=== PATIENT | male | born 1955 | race Caucasian/White ===

== ENCOUNTER 2020-07-17 19:04 | Emergency (ER) | payer OTHER, MEDICARE ==
[2020-07-17] MEDS ORDERED: Lactated Ringers 1,000 ML IV ONE ×2 (19:35→20:40)
--- NOTE | 2020-07-17 19:44 | EDM.PDOC ---
ED HPI GENERAL MEDICAL PROBLEM - General Stated Complaint: TRAUMA CODE Time Seen by Provider: 07/17/20 19:04 Source of Information: Reports: Patient, EMS, EMS Notes Reviewed, Family, RN, RN Notes Reviewed History Limitations: Reports: Altered Mental Status - History of Present Illness INITIAL COMMENTS - FREE TEXT/NARRATIVE: Patient is a 64-year-old male who presents to ER per [facility] ambulance ser vice after being bucked off a horse. EMS reports the patient was unconscious for approximately 5 minutes according to the who witnessed the fall. Patient was bucked and landed from about 8 feet off the ground. Upon arrival to the ER patient is alert but disoriented to time date and event. Patient complains of right flank pain just above the right hip, right shoulder blade pain, and a goose egg on the right side of the head. Patient does have an abrasion to the right lateral forearm. Patient is repeating himself about the right scapular pain and the goose egg on his head. Patient states he is retired and does not keep track of the month or year. Patient is unsure of what he was doing when this occurred, and does ask where he is from time to time. Initially upon arrival patient did know he was in [place]. Patient does not remember an ambulance ride today. Rating pain 1/10. GCS upon arrival = 14 Onset: Today, Sudden Review of Systems - Review of Systems Review Of Systems: Comprehensive ROS is negative, except as noted in HPI. ED EXAM, GENERAL - Physical Exam Exam: See Below Exam Limited By: Altered Mental Status General Appearance: Alert, WD/WN, Mild Distress Eye Exam: Bilateral Eye: EOMI, Normal Inspection, PERRL (3 brisk) Ears: Normal External Exam, Normal Canal, Hearing Grossly Normal, Normal TMs Nose: Normal Inspection, Normal Mucosa, No Blood Throat/Mouth: Normal Inspection, Normal Lips, Normal Teeth, Normal Gums, Normal Oropharynx, Normal Voice, No Airway Compromise Head: Other (hematoma to the right crown of head) Neck: Normal Inspection, Supple, Non-Tender, Full Range of Motion Respiratory/Chest: No Respiratory Distress, Lungs Clear, Normal Breath Sounds, No Accessory Muscle Use, Chest Non-Tender Cardiovascular: Normal Peripheral Pulses, Regular Rate, Rhythm, No Edema, No Gallop, No JVD, No Murmur, No Rub Peripheral Pulses: 2+: Radial (L), Radial (R), Dorsalis Pedis (L), Dorsalis Pedis (R) GI/Abdominal: Non-Tender, No Organomegaly, No Abnormal Bruit, No Mass, Pelvis Stable, Distended, Abnormal Bowel Sounds (distant) (Male) Exam: Deferred Rectal (Males) Exam: Deferred Back Exam: CVA Tenderness (R) (right flank pain just above right hip), Decreased Range of Motion, Paraspinal Tenderness, Vertebral Tenderness (low lumbar/sacrum) Extremities: Normal Inspection, Normal Range of Motion, Non-Tender, No Pedal Edema, Normal Capillary Refill Neurological: Alert, Disoriented (date, time, place, and event), Memory Loss Recent Events. No: Sensory/Motor Deficit Psychiatric: Normal Affect, Normal Mood Skin Exam: Warm, Dry, Other (abrasion to the right forearm) Lymphatic: No Adenopathy #1 Interpretation EKG Date: 07/17/20 Time: 19:26 Rhythm: NSR Rate (Beats/Min): 85 [place]: Normal P-Wave: Present QRS: Normal ST-T: Normal QT: Normal Comparison: NA - No Prior EKG Course - Orders/Labs/Meds Orders: Active Orders 24 hr Category Date Time Status EKG Documentation Completion [RC] STAT Care 07/17/20 18:55 Active Labs: Laboratory Tests 07/17/20 07/17/20 07/17/20 Range/Units 19:26 19:26 19:26 WBC 7.4 (4.0-10.0) x10^3/uL RBC 4.84 (4.5-6.0) x10^6/uL Hgb 14.8 (14.0-18.0) g/dL Hct 42.6 (40.0-52.0) % MCV 88.0 (78.0-93.0) fL MCH 30.6 (26.0-32.0) pg MCHC 34.7 (32.0-36.0) g/dL RDW Coeff of Yanet 13.7 (10.0-15.0) % Plt Count 161 (130-400) x10^3/uL Neut % (Auto) 77.6 (50.0-80.0) % Lymph % (Auto) 12.1 L (25.0-50.0) % Kay % (Auto) 7.7 (2.0-11.0) % Eos % (Auto) 2.3 (0.0-4.0) % Baso % (Auto) 0.3 (0.2-1.2) % PT 10.2 (9.9-12.5) SEC INR 0.9 L (2.0-3.5) Sodium 141 (136-145) mmol/L Potassium 4.2 (3.5-5.1) mmol/L Chloride 105 (98-107) mmol/L Carbon Dioxide 27 (21-32) mmol/L Anion Gap 13.2 (5-15) mmol/L BUN 24 H (7-18) mg/dL Creatinine 1.1 (0.70-1.30) mg/dL Est Cr Clr Drug Dosing TNP Estimated GFR (MDRD) > 60 Glucose 105 H (70-99) mg/dL Calcium 8.4 L (8.5-10.1) mg/dL Corrected Calcium 8.6 (8.5-10.1) mg/dL Magnesium 2.0 (1.8-2.4) mg/dL Total Bilirubin 0.5 (0.2-1.0) mg/dL AST 41 H (15-37) U/L ALT 44 (16-63) U/L Alkaline Phosphatase 71 (46-116) U/L Total Protein 7.1 (6.4-8.2) g/dL Albumin 3.8 (3.4-5.0) g/dL Globulin 3.3 Albumin/Globulin Ratio 1.15 Urine Color (YELLOW) Urine Appearance (CLEAR) Urine pH (5.0-8.0) Ur Specific [place] Urine Protein (NEGATIVE) mg/dL Urine Glucose (UA) (NEGATIVE) mg/dL Urine Ketones (NEGATIVE) mg/dL Urine Occult Blood (NEGATIVE) Urine Nitrite (NEGATIVE) Urine Bilirubin (NEGATIVE) Urine Urobilinogen (0.2) EU/dL Ur Leukocyte Esterase (NEGATIVE) Urine RBC (NOT SEEN) /HPF Urine WBC (NOT SEEN) /HPF Ur Squamous Epith Cells (NOT SEEN) /HPF Urine Bacteria (NOT SEEN) /HPF Urine Mucus (NOT SEEN) /LPF Urine Opiates Screen (NEAGTIVE) Ur Buprenorphine Scrn (NEGATIVE) Ur Oxycodone Screen (NEGATIVE) Ur EDDP (Meth Metab) (NEGATIVE) Urine Methadone Screen (NEGATIVE) Ur Barbiturates Screen (NEGATIVE) Ur Tricyclics Screen (NEGATIVE) Ur Phencyclidine Scrn (NEGATIVE) Ur Amphetamine Screen (NEGATIVE) U Methamphetamines Scrn (NEGATIVE) Urine MDMA Screen (NEGATIVE) U Benzodiazepines Scrn (NEGATIVE) U Cocaine Metab Screen (NEGATIVE) U Marijuana (THC) Screen (NEGATIVE) Ethyl Alcohol < 3 (0-3) mg/dL SARS CoV-2 RNA Rapid DAVID (NEGATIVE) 07/17/20 07/17/20 07/17/20 Range/Units 19:59 20:50 20:50 WBC (4.0-10.0) x10^3/uL RBC (4.5-6.0) x10^6/uL Hgb (14.0-18.0) g/dL Hct (40.0-52.0) % MCV (78.0-93.0) fL MCH (26.0-32.0) pg MCHC (32.0-36.0) g/dL RDW Coeff of Yanet (10.0-15.0) % Plt Count (130-400) x10^3/uL Neut % (Auto) (50.0-80.0) % Lymph % (Auto) (25.0-50.0) % Kay % (Auto) (2.0-11.0) % Eos % (Auto) (0.0-4.0) % Baso % (Auto) (0.2-1.2) % PT (9.9-12.5) SEC INR (2.0-3.5) Sodium (136-145) mmol/L Potassium (3.5-5.1) mmol/L Chloride (98-107) mmol/L Carbon Dioxide (21-32) mmol/L Anion Gap (5-15) mmol/L BUN (7-18) mg/dL Creatinine (0.70-1.30) mg/dL Est Cr Clr Drug Dosing Estimated GFR (MDRD) Glucose (70-99) mg/dL Calcium (8.5-10.1) mg/dL Corrected Calcium (8.5-10.1) mg/dL Magnesium (1.8-2.4) mg/dL Total Bilirubin (0.2-1.0) mg/dL AST (15-37) U/L ALT (16-63) U/L Alkaline Phosphatase (46-116) U/L Total Protein (6.4-8.2) g/dL Albumin (3.4-5.0) g/dL Globulin Albumin/Globulin Ratio Urine Color Yellow (YELLOW) Urine Appearance Slightly cloudy H (CLEAR) Urine pH 6.0 (5.0-8.0) Ur Specific [place] 1.020 Urine Protein Negative (NEGATIVE) mg/dL Urine Glucose (UA) Negative (NEGATIVE) mg/dL Urine Ketones Negative (NEGATIVE) mg/dL Urine Occult Blood Moderate H (NEGATIVE) Urine Nitrite Negative (NEGATIVE) Urine Bilirubin Negative (NEGATIVE) Urine Urobilinogen 0.2 (0.2) EU/dL Ur Leukocyte Esterase Negative (NEGATIVE) Urine RBC 10-20 H (NOT SEEN) /HPF Urine WBC 0-5 (NOT SEEN) /HPF Ur Squamous Epith Cells Not seen (NOT SEEN) /HPF Urine Bacteria Rare (NOT SEEN) /HPF Urine Mucus Occasional H (NOT SEEN) /LPF Urine Opiates Screen Negative (NEAGTIVE) Ur Buprenorphine Scrn Negative (NEGATIVE) Ur Oxycodone Screen Negative (NEGATIVE) Ur EDDP (Meth Metab) Negative (NEGATIVE) Urine Methadone Screen Negative (NEGATIVE) Ur Barbiturates Screen Negative (NEGATIVE) Ur Tricyclics Screen Negative (NEGATIVE) Ur Phencyclidine Scrn Negative (NEGATIVE) Ur Amphetamine Screen Negative (NEGATIVE) U Methamphetamines Scrn Negative (NEGATIVE) Urine MDMA Screen Negative (NEGATIVE) U Benzodiazepines Scrn Negative (NEGATIVE) U Cocaine Metab Screen Negative (NEGATIVE) U Marijuana (THC) Screen Negative (NEGATIVE) Ethyl Alcohol (0-3) mg/dL SARS CoV-2 RNA Rapid DAVID Negative (NEGATIVE) - Radiology Interpretation Free Text/Narrative:: Head CT wo contrast: 1. Small acute left basal ganglia hemorrhage. Hemorrhages in this location are commonly hypertensive, but in the context of trauma this may be posttraumatic hemorrhage. Cervical CT wo contrast: No acute findings Chest/Abdomen/Pelvis CT wo contrast: 1. Acute nondisplaced right posterior 11th rib fracture 2. Infiltrating hemorrhage in the right gluteal subcutaneous tissues 3. Indeterminate retrocrural soft tissue density possibly representing an enlarged lymph node. An elective abdomen CT with contrast may be useful for further characterization Thoracic CT wo contrast: 1. No evidence of acute thoracic spine trauma Lumbar CT wo contrast: 1. Possible tiny incidentally imaged pneumothorax along the medial margin of the right upper lobe not currently amenable to chest tube placement. 2. Negative for acute lumbar spine trauma See rad report - Re-Assessments/Exams Free Text/Narrative Re-Assessment/Exam: 07/17/20 20:48 Discussed patient case with Dr. Smith in the ER at [facility] who agreed to accept the patient for transfer. Departure - Departure Time of Disposition: 20:49 Disposition: DC/Tfer to Acute Hospital 02 Condition: Fair Clinical Impression: Trauma Hemorrhage of brain, traumatic Qualifiers: Encounter type: initial encounter Loss of consciousness presence/duration: with LOC of 30 min or less Qualified Code(s): S06.301A - Unspecified focal traumatic brain injury with loss of consciousness of 30 minutes or less, initial encounter Rib fracture Qualifiers: Encounter type: initial encounter Rib fracture type: single rib Fracture type: closed Laterality: right Qualified Code(s): S22.31XA - Fracture of one rib, rig ht side, initial encounter for closed fracture - Discharge Information *PRESCRIPTION DRUG MONITORING PROGRAM REVIEWED*: No *COPY OF PRESCRIPTION DRUG MONITORING REPORT IN PATIENT [place]: No Referrals: PCP,Not In Area [Primary Care Provider] - Forms: ED Department Discharge, Interfacility Transfer EMTALA - My Orders Last 24 Hours: My Active Orders 07/17/20 18:55 EKG Documentation Completion [RC] STAT - Assessment/Plan Last 24 Hours: My Active Orders 07/17/20 18:55 EKG Documentation Completion [RC] STAT
[2020-07-17 19:56] LABS: ANION GAP 13.2 mmol/L (5-15); CHLORIDE,CL 105 mmol/L (98-107); SODIUM,NA 141 mmol/L (136-145)
--- NOTE | 2020-07-17 20:19 | CT ---
[id number] CT/CT Cervical Spine WO IV EXAM: NONCONTRAST CERVICAL SPINE CT INDICATION: FALL FROM HORSE COMPARISON: None. DISCUSSION: There is slight degenerative spondylolisthesis C4 on C5. Mild straightening of the cervical lordosis. The vertebral bodies are otherwise normal in height and alignment. No fracture or suspicious osseous lesion is identified. Moderate disc degeneration C4-C5, C5-C6 and C6-C7. Mild to moderate facet arthropathy throughout the cervical spine. IMPRESSION: 1. No evidence of acute cervical spine trauma. Corona Hilario MD 07/17/202017 Thank you for allowing us to participate in the care of your patient.
--- NOTE | 2020-07-17 20:36 | CT ---
[id number] CT/CT Head WO IV EXAM: NONCONTRAST HEAD CT INDICATION: FALL FROM HORSE COMPARISON: None. DISCUSSION: Right posterior scalp soft tissue swelling. The ventricles and sulci are normal in size and configuration. Focal encephalomalacia involving the anterior convexity of the left frontal lobe. No mass effect or midline shift. Acute 10 x 4 x 4 mm mm intraparenchymal hemorrhage left basal ganglia (image 21 series 2. No acute territorial infarct is identified. Focal mucosal thickening in both maxillary sinuses and scattered throughout the ethmoid sinuses. Results called at time of dictation. IMPRESSION: 1. Small acute left basal ganglia hemorrhage. Hemorrhages in this location are commonly hypertensive, but in the context of trauma this may be a posttraumatic hemorrhage. Corona Hilario MD 07/17/202034 Thank you for allowing us to participate in the care of your patient.
--- NOTE | 2020-07-17 20:36 | CT ---
[id number] CT/CT Chest Abdomen Pelvis WO IV EXAM: CHEST ABDOMEN AND PELVIS CT WITHOUT CONTRAST INDICATION: FALL FROM HORSE COMPARISON: None. DISCUSSION: Infiltrating right gluteal subcutaneous hemorrhage. Small fat-containing bilateral inguinal hernias. Mild to moderate prostatomegaly. Small to moderate hiatus hernia. The hernia appears to potentially containing a portion of a Kendra fundoplication wrap, correlate with surgical history. The lungs are clear. No pneumothorax, pleural or pericardial fluid. No thoracic adenopathy. Unenhanced images of the great vessels are unremarkable. The liver contains scattered indeterminate hypodensities the largest in the medial segment of the left lobe measuring about 13 x 7 mm. The remaining hypodensities are less than a centimeter in diameter. A 35 x 33 x 14 mm retrocrural soft tissue density at the T10-T11 level could represent a small lymph node. Follow-up imaging with contrast may be useful at some point for further characterization. Evaluation for solid organ injury is limited without contrast, but there is no free air, free fluid or other evident traumatic complication within the peritoneal cavity. Unenhanced images of the gallbladder, spleen, pancreas, adrenal glands, kidneys, small and large bowel are unremarkable. Acute nondisplaced right posterior eleventh rib fracture. No other acute fractures are identified. There are scattered degenerative changes in the spine. IMPRESSION: 1. Acute nondisplaced right posterior eleventh rib fracture. 2. Infiltrating hemorrhage in the right gluteal subcutaneous tissues. 3. Indeterminate retrocrural soft tissue density possibly representing an enlarged lymph node. An elective abdomen CT with contrast may be useful for further characterization. Corona Hilario MD 07/17/202034 Thank you for allowing us to participate in the care of your patient.
[2020-07-17 20:59] LABS: BARBITURATE SCREEN,URINE NEGATIVE (NEGATIVE); BENZODIAZEPINES SCREEN,URINE NEGATIVE (NEGATIVE); EDDP,URINE SCREEN NEGATIVE (NEGATIVE); METHAMPHETAMINE SCREEN, URINE NEGATIVE (NEGATIVE); TCA SCREEN,URINE NEGATIVE (NEGATIVE); THC SCREEN,URINE 50 NG/ML NEGATIVE (NEGATIVE)
--- NOTE | 2020-07-17 21:02 | CT ---
[id number] CT/CT T-Spine 3D Recon [employer] EXAM: CT T-Spine 3D Recon [employer] INDICATION: TRAUMA COMPARISON: None. FINDINGS: There are numerous endplate indentations throughout the thoracic spine compatible with Schmorl's nodes. No fracture is identified. No subluxation. Mild convex right curvature centered at about T9. Mild to moderate disc degeneration at multiple thoracic levels which is most pronounced in the lower thoracic spine. IMPRESSION: 1. No evidence of acute thoracic spine trauma. Coorna Hilario MD 07/17/20 [id number] Thank you for allowing us to participate in the care of your patient.
--- NOTE | 2020-07-17 21:08 | CT ---
[id number] CT/CT Lumbar Spine 3D Recon EXAM: CT Lumbar Spine 3D Recon INDICATION: TRAUMA COMPARISON: None. FINDINGS: Mild to moderate convex left curvature centered at L2-L3. The vertebral bodies are otherwise normal in height and alignment with no acute fracture or subluxation identified. Infiltrating subcutaneous edema posterior to the right sacroiliac joint and lower lumbar spine. Images through the thoracic spine demonstrate possible punctate foci of pneumothorax along the medial aspect of the right upper lobe (image 22 series 2). Mild to moderate disc degeneration and facet arthropathy throughout the lumbar spine. IMPRESSION: 1. Possible tiny incidentally imaged pneumothorax along the medial margin of the right upper lobe not currently amenable to chest tube placement. 2. Negative for acute lumbar spine trauma. Corona Hilario MD 07/17/20 [id number] Thank you for allowing us to participate in the care of your patient.
== END 2020-07-17 21:15 | disposition short-term general hospital (02) ==
LOC: VM.ED 19:04
DX: S06.301A Unspecified focal traumatic brain injury with loss of consciousness of 30 minutes or less, initial encounter (principal); S22.31XA Fracture of one rib, right side, initial encounter for closed fracture; S50.811A Abrasion of right forearm, initial encounter; Z20.822 Contact with and (suspected) exposure to COVID-19; V80.010A Animal-rider injured by fall from or being thrown from horse in noncollision accident, initial encounter
CPT/HCPCS: 36415; 70450; 71250; 72125; 72128; 72131; 74176; 80053; 80305-QW; 80307; 81001; 83735; 85025; 85610; 93005; 93010; 99285; 99285-25; J7120; U0002